=== PATIENT | female | born 1945 | race Caucasian/White ===

== ENCOUNTER 2020-12-20 17:03 | Inpatient (IN) | payer MEDICARE ==
[~2020-12-20] VITALS: Ht 167.6 cm; Wt 46.7 kg
[~2020-12-20 17:03] MED LIST: ASCO-352 PO; CHOL100062 PO; MULT-1200 PO
--- NOTE | 2020-12-20 17:10 | NUR ---
Patient bibra from care facility, staff heard a sound and upon checking patient found on the floor. On room air, breathing evenly and unlabored. Connected to the monitor and pulse ox. kept comfortable, will continue to monitor accordingly.
[2020-12-20] MEDS ORDERED: LACT-58 PO (18:21)
[2020-12-20] MEDS ORDERED: ESOM20CA PO (18:21)
[2020-12-20] MEDS ORDERED: MAGN400O6 PO (18:21)
[2020-12-20] MEDS ORDERED: ATOR10TA PO (18:21)
[2020-12-20] MEDS ORDERED: CHOL100062 PO (18:21)
[2020-12-20] MEDS ORDERED: DOCU-141 PO (18:21)
[2020-12-20] MEDS ORDERED: LOPE2TAB25 PO (18:21)
[2020-12-20] MEDS ORDERED: MAG30ORA PO (18:21)
[2020-12-20] MEDS ORDERED: MULT-16 PO (18:21)
[2020-12-20 18:27] LABS: BASOPHILS % (AUTO) 0.4 % (0.0-2.0); EOSINOPHILS % (AUTO) 1.8 % (0.0-6.0); HEMATOCRIT 33 % (33-45); HEMOGLOBIN 10.9 g/dL (11.5-14.8); LYMPHOCYTES # (AUTO) 1.3 /CMM (0.8-4.8); LYMPHOCYTES % (AUTO) 22.6 % (20.0-44.0); MEAN CORPUSCULAR HGB CONC 33 g/dl (31.0-36.0); MEAN CORPUSCULAR VOLUME 98 fL (82-100); MONOCYTES # (AUTO) 0.5 /CMM (0.1-1.30); MONOCYTES % (AUTO) 8.7 % (2.0-12.0); NEUTROPHILS # (AUTO) 3.7 /CMM (1.8-8.9); NEUTROPHILS % (AUTO) 66.5 % (43.0-81.0); PLATELET COUNT (AUTO) 237 /CMM (150-450); RED BLOOD CELL COUNT(AUTO) 3.35 MIL/uL (4.0-5.2); WHITE BLOOD COUNT (AUTO) 5.6 K/uL (4.3-11.0)
[2020-12-20 19:05] LABS: POTASSIUM 4.1 mmol/L (3.5-5.1); SODIUM SERUM 145 mmol/L (136-145)
[2020-12-20 19:06] LABS: CALCIUM, SERUM 8.1 mg/dL (8.5-10.1); CARBON DIOXIDE 28 mmol/L (21-32); CHLORIDE 111 mmol/L (98-107); GLUCOSE 106 mg/dL (74-106); UREA NITROGEN, BLOOD 31 mg/dL (7-18)
[2020-12-20 19:23] LABS: BILIRUBIN,URINE NEGATIVE (NEGATIVE); COLOR,URINE YELLOW (YELLOW); LEUKOCYTE ESTERASE ,URINE NEGATIVE (NEGATIVE); NITRITE, URINE NEGATIVE (NEGATIVE); PROTEIN,URINE NEGATIVE (NEGATIVE); UGLUCOSE NEGATIVE (NEGATIVE); UROBILINOGEN,URINE 0.2 EU/dL (0.2)
[2020-12-20] MEDS ORDERED: IV NS 0.9% 1,000 ML IV ONE (19:30)
--- NOTE | 2020-12-20 21:14 | NUR ---
BED ASSIGNED= 102
--- NOTE | 2020-12-20 21:42 | NUR ---
report given to Tere BARON for rao
--- NOTE | 2020-12-20 22:20 | NUR ---
ADMIT NOTE RECEIVED PATIENT FROM ER, TRANSFERRED TO ROOM 102 VIA GURNEY. PATIENT IS AWAKE. ALERT AND ORIENTED TO NAME ONLY. ON ROOM AIR, O2 SAT 100%. NO S/S OF DISTRESS. TELE MONITOR ON, HR 50'S. WITH IV ACCESS ON RIGHT FOREARM #18 PATENT AND INTACT. DENIES ANY PAIN AT THIS TIME. SKIN ASSESSMENT DONE, NOTED WITH MID BACK REDNESS. NOTED WITH BILATERAL LOWER EXTREMITY PITTING EDEMA +1. ANGELES CATH PATENT AND INTACT, DRAINING YELLOW URINE TO GRAVITY. BED LOCKED AND IN LOWEST POSITION WITH SIDE RAILS UPX2. BED ALARM ON. CALL LIGHT WITHIN REACH. ALL NEEDS ANTICIPATED.
[2020-12-20] MEDS ORDERED: ACETAMINOPHEN 325 MG TABLET PO PRN (22:30)
[2020-12-20] MEDS ORDERED: Z GUARD REMEDY 2 OZ OINT TP PRN (22:30)
[2020-12-20] MEDS ORDERED: ONDANSETRON HCL/PF 4 MG/2 ML VIAL IVP PRN (22:30)
--- NOTE | 2020-12-20 22:45 | NUR ---
wheeled patient via gurney accompanied by RN and emt in no distress. RN assigned at bedside to assume care.
[2020-12-20 22:50] VITALS: BP 132/55
[2020-12-21] VITALS (8 sets, daily range): BP systolic 89–129; BP diastolic 49–79
[2020-12-21] MEDS: IV NS 0.9% 1,000 ML IV PRN ×2 (01:01→16:00)
--- NOTE | 2020-12-21 06:45 | NUR ---
RN NOTE PATIENT ALERT AND ORIENTED X1. ON ROOM AIR, O2 SAT 100%. RESPIRATIONS EVEN AND UNLABORED. TELE MONITOR ON, HR 50'S. WITH IV ACCESS ON RIGHT FOREARM #18 PATENT AND INTACT RUNNING IV NS @75 ML/HR. DENIES ANY PAIN AT THIS TIME. ANGELES CATH PATENT AND INTACT, DRAINING YELLOW URINE TO GRAVITY OUTPUT OF 400CC. ORTHOSTATIC HYPOTENSION BP TAKEN. LYING 128/60, SITTING 129/59, AND PATIENT UNABLE TO STAND AT THIS TIME. BED LOCKED AND IN LOWEST POSITION WITH SIDE RAILS UPX2. BED ALARM ON. CALL LIGHT WITHIN REACH. WILL ENDORSE TO AM SHIFT.
--- NOTE | 2020-12-21 07:00 | NUR ---
RN NOTES RECEIVED PT ON BED, A/Ox1, ON RA , O2 SAT WNL SB-SR ON TELE, R FA IV SITE CLEAN, DRY, INTACT, NS AT 75CC/HR RUNNING, SR UP X3, CALL LIGHT WITHIN EASY REACH, BED LOCKED AND IN LOWEST POSITION, CONTINUE TO MONITOR .
[2020-12-21] MEDS: ENSURE ENLIVE CHOC 237 ML CAN PO SCH ×3 (09:00→17:04)
[2020-12-21] MEDS: Magnesium 1GM/D5W 100ML PREMIX 100 ML IV SCH ×3 (09:00→10:00)
[2020-12-21] MEDS: ATORVASTATIN 10 MG TABLET PO SCH (09:54)
[2020-12-21] MEDS: ASCORBIC ACID 500 MG TABLET PO SCH (09:54)
[2020-12-21] MEDS: CHOLECALCIFEROL 1,000 UNIT TABLET (VIT D3) PO SCH (09:54)
[2020-12-21] MEDS: DOCUSATE SODIUM 100 MG CAPSULE PO SCH (09:54)
[2020-12-21] MEDS: MULTIVITAMINS,THERAGRAN 1 UDTAB TABLET PO SCH (09:54)
[2020-12-21 11:29] LABS: BASOPHILS % (AUTO) 0.5 % (0.0-2.0); EOSINOPHILS % (AUTO) 1.4 % (0.0-6.0); HEMATOCRIT 32 % (33-45); HEMOGLOBIN 10.8 g/dL (11.5-14.8); LYMPHOCYTES # (AUTO) 1.2 /CMM (0.8-4.8); LYMPHOCYTES % (AUTO) 22.3 % (20.0-44.0); MEAN CORPUSCULAR HGB CONC 33 g/dl (31.0-36.0); MEAN CORPUSCULAR VOLUME 98 fL (82-100); MONOCYTES # (AUTO) 0.4 /CMM (0.1-1.30); MONOCYTES % (AUTO) 7.5 % (2.0-12.0); NEUTROPHILS # (AUTO) 3.6 /CMM (1.8-8.9); NEUTROPHILS % (AUTO) 68.3 % (43.0-81.0); PLATELET COUNT (AUTO) 222 /CMM (150-450); RED BLOOD CELL COUNT(AUTO) 3.32 MIL/uL (4.0-5.2); WHITE BLOOD COUNT (AUTO) 5.3 K/uL (4.3-11.0)
[2020-12-21 11:40] LABS: CALCIUM, SERUM 8.2 mg/dL (8.5-10.1); CREATININE 0.6 mg/dL (0.6-1.3); MAGNESIUM 2.1 mg/dL (1.8-2.4); PHOSPHORUS 3.4 mg/dL (2.5-4.9); POTASSIUM 4.2 mmol/L (3.5-5.1)
--- NOTE | 2020-12-21 15:25 | NUR ---
RN NOTES REPORT GIVEN TO JESSE FOR CONTINUITY OF CARE .
--- NOTE | 2020-12-21 15:38 | NUR ---
RN NOTES PATIENT SHOWS S/S OF CONFUSION, IV PATENT INTACT, NO SOB, NO LABORED BREATHING NO DISTRESS NOTE, MADE COMFORTABLE AND EXPLAINED REASONS FOR BEING HERE, COOPERATIVE AT THIS TIME, CALL LIGHT IN REACH
--- NOTE | 2020-12-21 18:25 | NUR ---
RN NOTES PATIENT TRANSFERRED TO TELE MED FOR EPISODES OF SYNCOPE , A/OX 1, O2 SAT ROOM AIR 98% SB-SR ON TELE, RIGHT FORE ARM IV SITE CLEAN, DRY, INTACT, NO SOB , NO DISTRESS NOTED AND NO C/O PAIN, NS AT 75CC/HR RUNNING, CALL LIGHT WITHIN REACH, SAFETY PRECAUTIONS IN PLACE BED LOCKED AND IN LOWEST POSITION, CONTINUE TO MONITOR .
--- NOTE | 2020-12-21 19:20 | NUR ---
RN NOTE RECEIVED PT IN BED ALERT, INCOHERENT. REORIENTED TO TIME AND PLACE. NO DISTRESS NOTED. PT ON TELE MONITOR SHOWS SR WITH HR OF 61. PT WITH RFA IV LINE, NS RUNNING AT 75 ML/HR. WILL CONTINUE TO MONITOR. ALL SAFETY MEASURES IMPLEMENTED PER PROTOCOL. CALL LIGHT WITHIN REACH BED LOCKED IN LOWEST POSITION. SIDE RAILS UP X 2.
[2020-12-22] VITALS: BP 90/59
[2020-12-22 04:00] VITALS: BP 123/66
[2020-12-22] MEDS: IV NS 0.9% 1,000 ML IV PRN ×2 (04:47→18:38)
--- NOTE | 2020-12-22 05:34 | NUR ---
rt and charge nurse at bedside. pt refusing noncompliant and refusing ekg at this time. rn notified
[2020-12-22 05:57] LABS: BASOPHILS % (AUTO) 0.5 % (0.0-2.0); EOSINOPHILS % (AUTO) 1.3 % (0.0-6.0); HEMATOCRIT 31 % (33-45); HEMOGLOBIN 10.4 g/dL (11.5-14.8); LYMPHOCYTES # (AUTO) 1.2 /CMM (0.8-4.8); LYMPHOCYTES % (AUTO) 19.1 % (20.0-44.0); MEAN CORPUSCULAR HGB CONC 34 g/dl (31.0-36.0); MEAN CORPUSCULAR VOLUME 97 fL (82-100); MONOCYTES # (AUTO) 0.5 /CMM (0.1-1.30); MONOCYTES % (AUTO) 7.6 % (2.0-12.0); NEUTROPHILS # (AUTO) 4.4 /CMM (1.8-8.9); NEUTROPHILS % (AUTO) 71.5 % (43.0-81.0); PLATELET COUNT (AUTO) 212 /CMM (150-450); RED BLOOD CELL COUNT(AUTO) 3.21 MIL/uL (4.0-5.2); WHITE BLOOD COUNT (AUTO) 6.1 K/uL (4.3-11.0)
[2020-12-22 06:19] LABS: ALANINE AMINOTRANSFERASE 22 U/L (12-78); ALBUMIN 2.5 g/dL (3.4-5.0); ALKALINE PHOSPHATASE 113 U/L (46-116); ASPARTATE AMINOTRANSFERASE 20 U/L (15-37); BILIRUBIN,TOTAL 0.2 mg/dL (0.2-1.0); CARBON DIOXIDE 27 mmol/L (21-32); CHLORIDE 110 mmol/L (98-107); CREATININE 0.6 mg/dL (0.6-1.3); GLUCOSE 87 mg/dL (74-106); PHOSPHORUS 3.8 mg/dL (2.5-4.9); POTASSIUM 4.1 mmol/L (3.5-5.1); SODIUM SERUM 144 mmol/L (136-145); TOTAL PROTEIN, SERUM 5.3 g/dL (6.4-8.2); UREA NITROGEN, BLOOD 19 mg/dL (7-18)
--- NOTE | 2020-12-22 06:24 | NUR ---
RN CLOSING NOTES PT SLEEPING, AROUSES EASILY. NO SIGNS OF DISTRESS NOTED, REMAIN AFEBRILE. PT REFUSED EKG EARLIER. SINUS KAYLYN ON TELE MONITOR. NO SIGNIFICANT CHANGES. ANGELES CATH IN PLACE, DRAINING CLEAR URINE OUTPUT. CONTINUE ON IVF OF NS, NO SIGNS OF INFILTRATION NOTED. ALL SAFETY MEASURES MAINTAINED. WILL ENDORSE TO NEXT SHIFT NURSE FOR ROLANDO.
--- NOTE | 2020-12-22 07:50 | NUR ---
RN OPENING NOTE PATIENT IS CURRENTLY IN BED WITH HOB AT SEMI FOWLERS POSITION. PATIENT IS ON ROOM AIR WITH NO SIGNS OF LABORED BREATHING. PATIENT IS AOX1. RFA#18 IS PATENT AND INTACT. BED IS LOCKED IN THE LOWEST POSITION, 3 GUARD RAILS RAISED, CALL [place] WITHIN REACH, AND ALL HOSPITAL SAFETY PRECAUTIONS ARE BEING FOLLOWED. WILL CONTINUE TO MONITOR THROUGHOUT SHIFT.
[2020-12-22 08:00] VITALS: BP 120/58
[2020-12-22] MEDS ORDERED: ENSURE ENLIVE 237 ML LIQUID (VANILLA) PO SCH (08:00)
[2020-12-22] MEDS: ENSURE ENLIVE CHOC 237 ML CAN PO SCH ×3 (08:00→17:20)
[2020-12-22] MEDS: CHOLECALCIFEROL 1,000 UNIT TABLET (VIT D3) PO SCH (08:34)
[2020-12-22] MEDS: MULTIVITAMINS,THERAGRAN 1 UDTAB TABLET PO SCH (08:34)
[2020-12-22] MEDS: ATORVASTATIN 10 MG TABLET PO SCH (08:34)
[2020-12-22] MEDS: ASCORBIC ACID 500 MG TABLET PO SCH (08:34)
[2020-12-22] MEDS: DOCUSATE SODIUM 100 MG CAPSULE PO SCH (08:34)
[2020-12-22] MEDS: PANTOPRAZOLE 40 MG TABLET.DR PO SCH (08:36)
[2020-12-22 12:00] VITALS: BP 100/57
[2020-12-22 16:00] VITALS: BP 114/79
--- NOTE | 2020-12-22 18:46 | NUR ---
RN CLOSING NOTE PATIENT IS CURRENTLY IN BED WITH HOB AT SEMI FOWLERS POSITION. PATIENT IS ON ROOM AIR WITH NO SIGNS OF LABORED BREATHING. PATIENT IS AOX1. RFA#18 IS PATENT AND INTACT. BED IS LOCKED IN THE LOWEST POSITION, 3 GUARD RAILS RAISED, CALL [place] WITHIN REACH, AND ALL HOSPITAL SAFETY PRECAUTIONS ARE BEING FOLLOWED. ALL DUE MEDS GIVEN AND PATIENT REMAINED STABLE THROUGHOUT SHIFT. WILL ENDORSE TO COST ACCOUNTANT RN FOR ROLANDO.
[2020-12-22 20:00] VITALS: BP 106/56
--- NOTE | 2020-12-22 20:00 | NUR ---
RN NOTE RECEIVED PT IN THE BED AWAKE, PT IS CONFUSED, ON RA SATING 98%, TELE MONITOR SHOWING SB IM 50s, SAFETY MEASURES IN PLACE.
[2020-12-23] VITALS: BP 131/57
[2020-12-23 04:00] VITALS: BP 138/65
[2020-12-23 06:47] LABS: CALCIUM, SERUM 8.3 mg/dL (8.5-10.1); CREATININE 0.7 mg/dL (0.6-1.3); POTASSIUM 3.9 mmol/L (3.5-5.1)
--- NOTE | 2020-12-23 07:08 | NUR ---
RN NOTE REPORT GIVEN TO ONCOMING SHIFT FOR ROLANDO.
--- NOTE | 2020-12-23 07:45 | NUR ---
RN OPENING NOTE PATIENT IS IN BED WITH HOB AT SEMI FOWLERS. PATIENT IS CONFUSED. PATIENT IS ON ROOM AIR WITH NO SIGNS OF LABORED BREATHING. RFA IV ACCESS IS PATENT AND INTACT. ANGELES CATHETER IS IN PLACE. BED IS LOCKED IN THE LOWEST POSITION, 3 GUARD RAILS RAISED, CALL [place] WITHIN REACH, AND ALL HOSPITAL SAFETY PRECAUTIONS ARE BEING FOLLOWED. WILL CONTINUE TO MONITOR THROUGHOUT SHIFT.
[2020-12-23 08:00] VITALS: BP 125/73
[2020-12-23] MEDS: ENSURE ENLIVE CHOC 237 ML CAN PO SCH (08:00)
[2020-12-23 08:17] LABS: BASOPHILS % (AUTO) 0.2 % (0.0-2.0); EOSINOPHILS % (AUTO) 0.5 % (0.0-6.0); HEMATOCRIT 34 % (33-45); HEMOGLOBIN 11.3 g/dL (11.5-14.8); LYMPHOCYTES # (AUTO) 0.8 /CMM (0.8-4.8); LYMPHOCYTES % (AUTO) 9.1 % (20.0-44.0); MEAN CORPUSCULAR HGB CONC 34 g/dl (31.0-36.0); MEAN CORPUSCULAR VOLUME 97 fL (82-100); MONOCYTES # (AUTO) 0.6 /CMM (0.1-1.30); MONOCYTES % (AUTO) 7.6 % (2.0-12.0); NEUTROPHILS % (AUTO) 82.6 % (43.0-81.0); PLATELET COUNT (AUTO) 216 /CMM (150-450); RED BLOOD CELL COUNT(AUTO) 3.48 MIL/uL (4.0-5.2); WHITE BLOOD COUNT (AUTO) 8.5 K/uL (4.3-11.0)
[2020-12-23] MEDS: PANTOPRAZOLE 40 MG TABLET.DR PO SCH (08:43)
[2020-12-23] MEDS: DOCUSATE SODIUM 100 MG CAPSULE PO SCH (08:43)
[2020-12-23] MEDS: ATORVASTATIN 10 MG TABLET PO SCH (08:43)
[2020-12-23] MEDS: CHOLECALCIFEROL 1,000 UNIT TABLET (VIT D3) PO SCH (08:44)
[2020-12-23] MEDS: MULTIVITAMINS,THERAGRAN 1 UDTAB TABLET PO SCH (08:44)
[2020-12-23] MEDS: ASCORBIC ACID 500 MG TABLET PO SCH (08:44)
--- NOTE | 2020-12-23 10:40 | NUR ---
RN NOTE REPORT GIVEN TO ANAYA AT [facility]. ATTEMPTED TO OBTAIN PNEUMO VACCINE STATUS BUT THEY DID NOT HAVE ACCESS TO INFORMATION AT THE TIME I CALLED. CALLED PATIENT'S BROTHER BERNARD AND HE STATED HE WAS UNSURE ON THE PNEUMO VACCINE STATUS FOR PATIENT AND THAT HE WOULD LIKE IT NOT TO BE ADMINISTERED SO HE CAN FOLLOW UP WITH HER PCP AND THEN TAKE THE NECESSARY ACTION. Addendum: 12/23/20 at 1126 by RALPH KERR RN REPORT GIVEN TO ANAYA AT [facility]. NOT [facility]
--- NOTE | 2020-12-23 11:15 | NUR ---
RN NOTE REPORT GIVEN TO EMT FOR DC AND ROLANDO. PATIENT IN STABLE CONDITION.
== END 2020-12-23 12:04 | DRG 641 ==
LOC: ER 17:08 → MEDSG1 21:14 → TELE1 21:20 → MEDSG1 12-23 08:21
PROVIDERS: ADMIT Nurse Practitioner Acute Care; ATTEND Family Medicine
DX: E86.9 Volume depletion, unspecified (principal); N17.9 Acute kidney failure, unspecified; E44.0 Moderate protein-calorie malnutrition; E86.0 Dehydration; R00.1 Bradycardia, unspecified; F03.90 Unspecified dementia, unspecified severity, without behavioral disturbance, psychotic disturbance, mood disturbance, and anxiety; D64.9 Anemia, unspecified; F41.9 Anxiety disorder, unspecified; I48.0 Paroxysmal atrial fibrillation; Z20.822 Contact with and (suspected) exposure to COVID-19; Z79.899 Other long term (current) drug therapy; E83.42 Hypomagnesemia
CPT/HCPCS: 36415; 70450-TC; 71045-TC; 72125-TC; 80048-TC; 80053-TC; 80061-TC; 83735-TC; 84100-TC; 84484-TC; 85025-TC; 87081-TC; 97112-TC; 97530-TC; G0378; J3475; J7030; U0003

== ENCOUNTER 2022-07-20 13:53 | Inpatient (IN) | payer MEDICARE ==
[~2022-07-20] VITALS: Ht 162.6 cm; Wt 65.8 kg
[~2022-07-20 13:53] MED LIST changes: +ATOR10TA PO; +DOCU-141 PO; +ESOM20CA PO; +LACT-58 PO; +LOPE2TAB25 PO; +MAG30ORA PO; +MAGN400O6 PO; -MULT-1200 PO; +MULT-16 PO
[2022-07-20] MEDS ORDERED: QUET50TA PO (14:27)
[2022-07-20] MEDS ORDERED: MIRT-121 PO (14:27)
[2022-07-20] MEDS ORDERED: IV NS 0.9% 1,000 ML IV ONE (14:30)
[2022-07-20 14:40] LABS: BASOPHILS % (AUTO) 0.2 % (0.0-2.0); EOSINOPHILS % (AUTO) 0.3 % (0.0-6.0); HEMATOCRIT 40 % (33-45); HEMOGLOBIN 12.9 g/dL (11.5-14.8); LYMPHOCYTES # (AUTO) 0.5 K/uL (0.8-4.8); MEAN CORPUSCULAR HGB CONC 32 g/dl (31.0-36.0); MEAN CORPUSCULAR VOLUME 95 fL (82-100); MONOCYTES # (AUTO) 0.6 K/uL (0.1-1.30); MONOCYTES % (AUTO) 4.5 % (2.0-12.0); NEUTROPHILS # (AUTO) 11.6 K/uL (1.8-8.9); PLATELET COUNT (AUTO) 144 K/uL (150-450); WHITE BLOOD COUNT (AUTO) 12.8 K/uL (4.3-11.0)
[2022-07-20 14:58] LABS: CALCIUM, SERUM 8.9 mg/dL (8.5-10.1); CARBON DIOXIDE 26 mmol/L (21-32); CHLORIDE 112 mmol/L (98-107); CREATININE 1.2 mg/dL (0.6-1.3); GLUCOSE 113 mg/dL (74-106); POTASSIUM 3.5 mmol/L (3.5-5.1); SODIUM SERUM 149 mmol/L (136-145); UREA NITROGEN, BLOOD 23 mg/dL (7-18)
--- NOTE | 2022-07-20 15:00 | NUR ---
No obvious distress. No acute changes
[2022-07-20 15:02] LABS: ALANINE AMINOTRANSFERASE 44 U/L (12-78); ALBUMIN 3.3 g/dL (3.4-5.0); ALKALINE PHOSPHATASE 240 U/L (46-116); ASPARTATE AMINOTRANSFERASE 39 U/L (15-37); BILIRUBIN,DIRECT 0.3 mg/dL (0.0-0.2); BILIRUBIN,TOTAL 0.6 mg/dL (0.2-1.0); TOTAL PROTEIN, SERUM 6.6 g/dL (6.4-8.2)
--- NOTE | 2022-07-20 16:30 | NUR ---
Status quo NO acute changes awaiting bed assignment
--- NOTE | 2022-07-20 16:45 | NUR ---
BED 317-2
[2022-07-20 17:00] LABS: BILIRUBIN,URINE NEGATIVE (NEGATIVE); COLOR,URINE YELLOW (YELLOW); LEUKOCYTE ESTERASE ,URINE NEGATIVE (NEGATIVE); NITRITE, URINE NEGATIVE (NEGATIVE); PH,URINE 5.5 (5.0-8.0); PROTEIN,URINE TRACE mg/dl (NEGATIVE); UGLUCOSE NEGATIVE (NEGATIVE); UROBILINOGEN,URINE 0.2 EU/dL (0.2)
--- NOTE | 2022-07-20 17:02 | NUR ---
REPORT GIVEN TO COLE.
[2022-07-20 17:43] LABS: BACTERIA,URINE 1+ /HPF (None Seen); URINE AMORPHOUS URATE Moderate /HPF (None Seen)
[2022-07-20 18:15] VITALS: BP 119/60
[2022-07-20] MEDS ORDERED: MAGNESIUM HYDROXIDE 30 ML UDC PO PRN ×2 (19:00→19:30)
--- NOTE | 2022-07-20 19:01 | NUR ---
Patient was received on unit transferred from ER in stabe condition. Vital taken, tele monitor in place SR on monitor. Patient has no complaint at this time, has confusing unable to state name. Will report to oncoming shift
[2022-07-20] MEDS ORDERED: MAG HYDROX/AL HYDROX/SIMETH 30 ML UDC PO PRN (19:30)
[2022-07-20] MEDS ORDERED: ACETAMINOPHEN 325 MG TABLET PO PRN (19:30)
[2022-07-20] MEDS ORDERED: ONDANSETRON HCL/PF 4 MG/2 ML VIAL IVP PRN (19:30)
[2022-07-20] MEDS ORDERED: Z GUARD REMEDY 4 OZ OINT TP PRN (19:30)
[2022-07-20] MEDS ORDERED: IV NS 0.9% 1,000 ML IV PRN (19:30)
--- NOTE | 2022-07-20 19:45 | NUR ---
GROUNDS CREW SUPERVISOR OPENING NOTE RECEIVED PATIENT IN BED; AWAKE, ALERT AND ORIENTED X O. ON ROOM AIR; TOLERATING WELL. BREATHING EVEN AND NONLABORED. NOT IN ANY FORM OF RESPIRATORY DISTRESS. NO S/S OF ANY PAIN OR DISCOMFORT NOTED AT THIS TIME. ON TELEMETRY MONITORING WHICH READS SINUS RHYTHM HR-65 BPM. WITH IV ACCESS @ LEFT HAND 20G; PATENT, INTACT AND SALINE LOCKED. WITH ANGELES CATHETER IN PLACE DRAINING BY GRAVITY TO YELLOW COLORED URINE. NEEDS ANTICIPATED. SAFETY PRECAUTIONS IMPLEMENTED: CALL LIGHT AND TABLE WITHIN REACH, SIDE RAILS UP X 2, BED IN LOWEST LOCKED POSITION. WILL CONTINUE TO MONITOR.
[2022-07-20 20:00] VITALS: BP 119/55
[2022-07-20 20:30] VITALS: BP 119/55
[2022-07-20] MEDS: MIRTAZAPINE 15 MG TABLET PO SCH (21:55)
[2022-07-20] MEDS: QUETIAPINE FUMARATE 25 MG TABLET PO SCH (21:55)
[2022-07-20] MEDS ORDERED: ZOLPIDEM TARTRATE 5 MG TABLET PO PRN (22:00)
[2022-07-21] VITALS: BP 98/73
[2022-07-21 04:00] VITALS: BP 124/79
[2022-07-21 06:58] LABS: BASOPHILS % (AUTO) 0.2 % (0.0-2.0); EOSINOPHILS % (AUTO) 1.2 % (0.0-6.0); HEMATOCRIT 34 % (33-45); HEMOGLOBIN 11.4 g/dL (11.5-14.8); LYMPHOCYTES # (AUTO) 0.8 K/uL (0.8-4.8); LYMPHOCYTES % (AUTO) 9.4 % (20.0-44.0); MEAN CORPUSCULAR HGB CONC 34 g/dl (31.0-36.0); MEAN CORPUSCULAR VOLUME 95 fL (82-100); MONOCYTES # (AUTO) 0.7 K/uL (0.1-1.30); MONOCYTES % (AUTO) 8.4 % (2.0-12.0); NEUTROPHILS # (AUTO) 6.8 K/uL (1.8-8.9); NEUTROPHILS % (AUTO) 80.8 % (43.0-81.0); PLATELET COUNT (AUTO) 109 K/uL (150-450); RED BLOOD CELL COUNT(AUTO) 3.55 MIL/uL (4.0-5.2); WHITE BLOOD COUNT (AUTO) 8.4 K/uL (4.3-11.0)
[2022-07-21 07:00] VITALS: BP 126/75
--- NOTE | 2022-07-21 07:05 | NUR ---
ACCOUNT ENGINEER CLOSING NOTE PATIENT IN BED; AWAKE, A/O X O. STABLE ON ROOM AIR. BREATHING EQUAL AND UNLABORED. IN NO ACUTE DISTRESS. NO S/S OF ANY PAIN OR DISCOMFORT NOTED AT THIS TIME. ON TELEMETRY MONITORING WHICH READS SINUS RHYTHM HR-68 BPM. WITH IV ACCESS @ LEFT HAND 20G; PATENT, INTACT AND SALINE LOCKED. WITH ANGELES CATHETER IN PLACE DRAINING BY GRAVITY TO YELLOW COLORED URINE. ALL NEEDS ATTENDED. SAFETY PREACAUTIONS MAINTAINED: CALL LIGHT AND TABLE WITHIN REACH, SIDE RAILS UP X 2, BED IN LOWEST LOCKED POSITION. ENDORSED TO MORNING SHIFT FOR ROLANDO.
--- NOTE | 2022-07-21 07:18 | NUR ---
MS RN RECEIVED PATIENT ON BED, AWAKE, ORIENTED X 0, NOT IN ANY FORM OF DISTRESS, RESPIRATIONS EVEN AND UNLABORED,NO SOB NOTED, LUNGS ARE DIMINISHED,ABDOMEN SOFT,POSITIVE BOWEL SOUNDS,DENIES PAIN AT THIS TIME,WILL MONITOR PATIENT'S CONDITION.
[2022-07-21 07:22] LABS: CALCIUM, SERUM 8.4 mg/dL (8.5-10.1); CREATININE 0.8 mg/dL (0.6-1.3); MAGNESIUM 1.8 mg/dL (1.8-2.4); PHOSPHORUS 3.6 mg/dL (2.5-4.9); POTASSIUM 3.6 mmol/L (3.5-5.1)
[2022-07-21 07:34] LABS: THYROID STIMULATING HORMONE 0.946 uIU/mL (0.358-3.74)
[2022-07-21] MEDS ORDERED: PANTOPRAZOLE 40 MG VIAL IV SCH (09:00)
--- NOTE | 2022-07-21 09:11 | NUR ---
MS RN BREAKFAST SERVED,DUE MEDS GIVEN, TOLERATED WELL.ALL NEEDS ATTENDED.
[2022-07-21] MEDS: PANTOPRAZOLE 40 MG TABLET.DR PO SCH (09:30)
[2022-07-21] MEDS: ATORVASTATIN 10 MG TABLET PO SCH (09:30)
[2022-07-21] MEDS: ASCORBIC ACID 500 MG TABLET PO SCH (09:30)
[2022-07-21] MEDS: DOCUSATE SODIUM 100 MG CAPSULE PO SCH (09:31)
--- NOTE | 2022-07-21 09:50 | NUR ---
MS RN WAS SEEN BY, BARELY TOLERATED, NO DISTRESS NOTED.
[2022-07-21 12:00] VITALS: BP 109/47
[2022-07-21] MEDS: IV D5W 1,000 ML IV PRN (17:09)
[2022-07-21 20:00] VITALS: BP 121/60
--- NOTE | 2022-07-21 20:00 | NUR ---
HEAT TREATER APPRENTICE OPENING NOTE PATIENT IN BED; AWAKE, A/O X O. STABLE ON ROOM AIR. BREATHING EQUAL AND UNLABORED. IN NO ACUTE DISTRESS. NO S/S OF ANY PAIN OR DISCOMFORT NOTED AT THIS TIME. ON TELEMETRY MONITORING WHICH READS SINUS RHYTHM HR-68 BPM. WITH ANGELES CATHETER IN PLACE DRAINING BY GRAVITY TO YELLOW COLORED URINE. ALL NEEDS ATTENDED. SAFETY PRECAUTIONS MAINTAINED: CALL LIGHT AND TABLE WITHIN REACH, SIDE RAILS UP X 2, BED IN LOWEST LOCKED POSITION.
[2022-07-21] MEDS: QUETIAPINE FUMARATE 25 MG TABLET PO SCH (21:22)
[2022-07-21] MEDS: MIRTAZAPINE 15 MG TABLET PO SCH (21:22)
[2022-07-21 23:25] VITALS: BP 115/62
--- NOTE | 2022-07-22 06:45 | NUR ---
FILLING CARRIER CLOSING NOTE PATIENT IN BED; AWAKE, A/O X O. STABLE ON ROOM AIR. BREATHING EQUAL AND UNLABORED. IN NO ACUTE DISTRESS. NO S/S OF ANY PAIN OR DISCOMFORT NOTED AT THIS TIME. ON TELEMETRY MONITORING WHICH READS SINUS RHYTHM. WITH ANGELES CATHETER IN PLACE DRAINING BY GRAVITY TO YELLOW COLORED URINE. ALL NEEDS ATTENDED. SAFETY PRECAUTIONS MAINTAINED: CALL LIGHT AND TABLE WITHIN REACH, SIDE RAILS UP X 2, BED IN LOWEST LOCKED POSITION. WILL ENDORSE CARE TO DAY SHIFT NURSE.
--- NOTE | 2022-07-22 07:25 | NUR ---
ms rn received on bed, confuse,not in any form of distress, respirations even and unlabored,no sob noted, occasional coughing noted, no s/s of pain noted, noted to have left cheek bruise and bilateral foot bruise,both off loaded w/ pillows,repositioned w/ comfort,all needs attended.
[2022-07-22 08:00] VITALS: BP 119/64
[2022-07-22] MEDS: DOCUSATE SODIUM 100 MG CAPSULE PO SCH (08:10)
[2022-07-22] MEDS: ASCORBIC ACID 500 MG TABLET PO SCH (08:10)
[2022-07-22] MEDS: PANTOPRAZOLE 40 MG TABLET.DR PO SCH (08:10)
[2022-07-22] MEDS: ATORVASTATIN 10 MG TABLET PO SCH (08:10)
--- NOTE | 2022-07-22 09:00 | NUR ---
ms amy due meds given, breakfast served,tolerated well.will monitor patient.
--- NOTE | 2022-07-22 12:00 | NUR ---
ms rn called lab for blood draw note done.
[2022-07-22] MEDS: IPRATROPIUM NEB FS 0.5 MG/2.5 ML AMPUL.NEB NEB SCH ×3 (13:19→23:49)
[2022-07-22] MEDS: ALBUTEROL FS 2.5 MG/3 ML VIAL.NEB NEB SCH ×3 (13:20→23:49)
[2022-07-22 13:50] LABS: CALCIUM, SERUM 7.8 mg/dL (8.5-10.1); CREATININE 0.9 mg/dL (0.6-1.3); MAGNESIUM 1.3 mg/dL (1.8-2.4); PHOSPHORUS 3.3 mg/dL (2.5-4.9); POTASSIUM 3.2 mmol/L (3.5-5.1)
[2022-07-22 14:27] LABS: BASOPHILS % (AUTO) 0.1 % (0.0-2.0); HEMATOCRIT 34 % (33-45); HEMOGLOBIN 11.4 g/dL (11.5-14.8); LYMPHOCYTES # (AUTO) 0.5 K/uL (0.8-4.8); LYMPHOCYTES % (AUTO) 5.2 % (20.0-44.0); MEAN CORPUSCULAR HGB CONC 34 g/dl (31.0-36.0); MEAN CORPUSCULAR VOLUME 93 fL (82-100); MONOCYTES # (AUTO) 0.7 K/uL (0.1-1.30); MONOCYTES % (AUTO) 7.2 % (2.0-12.0); NEUTROPHILS # (AUTO) 7.9 K/uL (1.8-8.9); NEUTROPHILS % (AUTO) 87.5 % (43.0-81.0); PLATELET COUNT (AUTO) 123 K/uL (150-450); RED BLOOD CELL COUNT(AUTO) 3.64 MIL/uL (4.0-5.2)
--- NOTE | 2022-07-22 15:30 | NUR ---
ms rn received lab result,called pharmacy for orders.
[2022-07-22 16:00] VITALS: BP 146/89
[2022-07-22] MEDS: Magnesium 1GM/D5W 100ML PREMIX 100 ML IV SCH ×4 (18:47→22:47)
[2022-07-22] MEDS ORDERED: POTASSIUM CHLORIDE 20 MEQ POWDER PACKET PO ONE (19:00)
--- NOTE | 2022-07-22 19:08 | NUR ---
ms rn on bed, no distress,will mnitor patient started mg iv, k replacement given,all needs attended.
--- NOTE | 2022-07-22 19:35 | NUR ---
RADIO DIVISION LIEUTENANT OPENING NOTE PATIENT IN BED; AWAKE, A/O X 1. STABLE ON ROOM AIR. BREATHING EQUAL AND UNLABORED. IN NO ACUTE DISTRESS. NO S/S OF ANY PAIN OR DISCOMFORT NOTED AT THIS TIME. ON TELEMETRY MONITORING WHICH READS SINUS RHYTHM. WITH ANGELES CATHETER IN PLACE DRAINING BY GRAVITY TO YELLOW COLORED URINE. ALL NEEDS ATTENDED. SAFETY PRECAUTIONS MAINTAINED: CALL LIGHT AND TABLE WITHIN REACH, SIDE RAILS UP X 2, BED IN LOWEST LOCKED POSITION.
[2022-07-22 20:00] VITALS: BP 81/46
[2022-07-22] MEDS: MIRTAZAPINE 15 MG TABLET PO SCH (21:11)
[2022-07-22] MEDS: QUETIAPINE FUMARATE 25 MG TABLET PO SCH (21:12)
[2022-07-22] MEDS ORDERED: IV NS 0.9% 500 ML IV ONE (22:30)
--- NOTE | 2022-07-22 22:30 | NUR ---
RN NOTE PTS SBP NOTED TO BE 64/45 HEAT PUMP INSTALLER CARLYN NOTIFIED WITH ORDER FOR 500CC NS BOLUS. BEING ADMINISTERED AT THIS TIME.
--- NOTE | 2022-07-23 | NUR ---
RN NOTE PT SBP IS NOW 100/50 NO DISTRESS NOTED NOT FEBRILE PT WAS PLACED ON 2L NS DUE TO O2 SATURATION FLUCTUATING FROM 81-90% ON ROOM AIR PT IS NOW SATURATING AT 96-98%
[2022-07-23] MEDS: ALBUTEROL FS 2.5 MG/3 ML VIAL.NEB NEB SCH ×6 (04:18→23:38)
[2022-07-23] MEDS: IPRATROPIUM NEB FS 0.5 MG/2.5 ML AMPUL.NEB NEB SCH ×6 (04:18→23:38)
[2022-07-23 06:02] LABS: EOSINOPHILS % (AUTO) 0.1 % (0.0-6.0); HEMATOCRIT 30 % (33-45); HEMOGLOBIN 10.3 g/dL (11.5-14.8); LYMPHOCYTES # (AUTO) 1.2 K/uL (0.8-4.8); LYMPHOCYTES % (AUTO) 12.2 % (20.0-44.0); MEAN CORPUSCULAR HGB CONC 34 g/dl (31.0-36.0); MEAN CORPUSCULAR VOLUME 94 fL (82-100); MONOCYTES # (AUTO) 0.6 K/uL (0.1-1.30); MONOCYTES % (AUTO) 6.4 % (2.0-12.0); NEUTROPHILS # (AUTO) 7.8 K/uL (1.8-8.9); NEUTROPHILS % (AUTO) 81.3 % (43.0-81.0); PLATELET COUNT (AUTO) 93 K/uL (150-450); RED BLOOD CELL COUNT(AUTO) 3.19 MIL/uL (4.0-5.2); WHITE BLOOD COUNT (AUTO) 9.6 K/uL (4.3-11.0)
[2022-07-23 06:07] LABS: CALCIUM, SERUM 7.6 mg/dL (8.5-10.1); CREATININE 1.2 mg/dL (0.6-1.3); MAGNESIUM 3.1 mg/dL (1.8-2.4); PHOSPHORUS 3.3 mg/dL (2.5-4.9); POTASSIUM 3.9 mmol/L (3.5-5.1)
--- NOTE | 2022-07-23 06:57 | NUR ---
NARRATIVE WRITER CLOSING NOTE PATIENT IN BED; AWAKE, A/O X 1. STABLE ON ROOM AIR. BREATHING EQUAL AND UNLABORED. IN NO ACUTE DISTRESS. NO S/S OF ANY PAIN OR DISCOMFORT NOTED AT THIS TIME. ON TELEMETRY MONITORING WHICH READS SINUS RHYTHM. WITH ANGELES CATHETER IN PLACE DRAINING BY GRAVITY TO YELLOW COLORED URINE. ALL NEEDS ATTENDED. SAFETY PRECAUTIONS MAINTAINED: CALL LIGHT AND TABLE WITHIN REACH, SIDE RAILS UP X 2, BED IN LOWEST LOCKED POSITION. WILL ENDORSE ROLANDO.
--- NOTE | 2022-07-23 07:40 | NUR ---
RN OPENING NOTE PATIENT AWAKE IN BED RESTING AT THE MOMENT A/O X 1. NO S/S OF PAIN NOTED AT THIS TIME. ON 2L OXYGEN VIA NC, NO DISTRESS OR SHORTNESS OF BREATH NOTED. IV ACCESS L HAND, INTACT, PATENT AND FLUSHING WELL. PATIENT HAVE A ANGELES CATHETER IN PLACE AND DRAINING WELL. PATIENT WITH EXTERNAL DEPARTMENT OPERATIONS MANAGER WITH CURRENT READING OF SR AND HR OF 70, NO CARDIAC DISTRESS NOTED. FALL AND SAFETY MEASURES IN PLACE, BED ALARM ON, BED IN LOW AND LOCK POSITION, CALL LIGHT AND TABLE WITHIN EASY REACH, SIDE RAILS UP X2. WILL CONTINUE TO MONITOR.
[2022-07-23 08:00] VITALS: BP 121/57
[2022-07-23] MEDS: ASCORBIC ACID 500 MG TABLET PO SCH (09:08)
[2022-07-23] MEDS: DOCUSATE SODIUM 100 MG CAPSULE PO SCH (09:08)
[2022-07-23] MEDS: PANTOPRAZOLE 40 MG TABLET.DR PO SCH (09:08)
[2022-07-23] MEDS: ATORVASTATIN 10 MG TABLET PO SCH (09:08)
[2022-07-23 11:14] LABS: BASOPHILS % (MANUAL) 0 % (0.0-2.0); EOSINOPHILS % (MANUAL) 0 % (0-4); LYMPHOCYTES % (MANUAL) 11 % (16-48); MONOCYTES % (MANUAL) 7 % (0-11.0); NEUTROPHILS % (MANUAL) 82 (42-76)
[2022-07-23] MEDS: IV D5W 1,000 ML IV PRN (12:56)
[2022-07-23 16:00] VITALS: BP 103/50
--- NOTE | 2022-07-23 18:54 | NUR ---
RN CLOSING NOTE PATIENT AWAKE IN BED RESTING AT THE MOMENT A/O X 1. NO S/S OF PAIN NOTED AT THIS TIME. ON 2L OXYGEN VIA NC, NO DISTRESS OR SHORTNESS OF BREATH NOTED. IV ACCESS L HAND, INTACT, PATENT AND FLUSHING WELL. PATIENT HAVE A ANGELES CATHETER IN PLACE AND DRAINING WELL, OUTPUT 600ML. PATIENT WITH EXTERNAL OVEN UNLOADER WITH CURRENT READING OF SR AND HR OF 78, NO CARDIAC DISTRESS NOTED. SCHEDULE MEDICATIONS ADMINISTERED. PATIENT WAS TURNED AND REPOSITIONED PER PROTOCOL. FALL AND SAFETY MEASURES IN PLACE, BED ALARM ON, BED IN LOW AND LOCK POSITION, CALL LIGHT AND TABLE WITHIN EASY REACH, SIDE RAILS UP X2. WILL ENDORSE TO HOSPICE ART THERAPIST.
--- NOTE | 2022-07-23 20:09 | NUR ---
AT RISK SPECIALIST OPENING NOTE PATIENT AWAKE IN BED RESTING AT THE MOMENT A/O X 1. NO S/S OF PAIN NOTED AT THIS TIME. ON 2L OXYGEN VIA NC, NO DISTRESS OR SHORTNESS OF BREATH NOTED. IV ACCESS L HAND INFUSING D5W AT 75ML/H, INTACT. ANGELES CATHETER IN PLACE AND DRAINING WELL, OUTPUT 600ML. PATIENT WITH EXTERNAL COMMERCIAL LOAN PROCESSOR WITH CURRENT READING OF SR AND HR OF 78, NO CARDIAC DISTRESS NOTED. PATIENT WAS TURNED AND REPOSITIONED PER PROTOCOL. SKIN ISSUES NOTED AT RIGHT KNEE REDNESS, BRUISING ON FACE AND FEET, RIGHT LATERAL WRIST REDNESS. FALL AND SAFETY MEASURES IN PLACE, BED ALARM ON, BED IN LOW AND LOCK POSITION, CALL LIGHT AND TABLE WITHIN EASY REACH, SIDE RAILS UP X2. WILL CONT TO MONITOR.
[2022-07-23 20:46] VITALS: BP 92/50
[2022-07-23] MEDS: MIRTAZAPINE 15 MG TABLET PO SCH (21:58)
[2022-07-23] MEDS: QUETIAPINE FUMARATE 25 MG TABLET PO SCH (21:58)
[2022-07-24 00:45] VITALS: BP_SYST 166; BP_SYST 90; BP_DIAS 43; BP_DIAS 76
[2022-07-24] MEDS: IPRATROPIUM NEB FS 0.5 MG/2.5 ML AMPUL.NEB NEB SCH ×6 (04:11→23:11)
[2022-07-24] MEDS: ALBUTEROL FS 2.5 MG/3 ML VIAL.NEB NEB SCH ×6 (04:11→23:11)
[2022-07-24 05:01] VITALS: BP 99/56
--- NOTE | 2022-07-24 06:41 | NUR ---
AUTO DESIGN CHECKER CLOSING NOTE PATIENT ASLEEP IN BED. A/O X 1. NO S/S OF PAIN NOTED AT THIS TIME. ON 2L OXYGEN VIA NC, NO DISTRESS OR SHORTNESS OF BREATH NOTED. IV ACCESS L HAND INFUSING D5W AT 75ML/H, INTACT. ANGELES CATHETER IN PLACE AND DRAINING WELL, OUTPUT 550ML. PATIENT WITH EXTERNAL SILVERING DEPARTMENT SUPERVISOR WITH CURRENT READING OF SR AND HR OF 73. NO CARDIAC DISTRESS NOTED. PATIENT WAS TURNED AND REPOSITIONED PER PROTOCOL. SKIN ISSUES NOTED AT RIGHT KNEE REDNESS, BRUISING ON FACE AND FEET, RIGHT LATERAL WRIST REDNESS. PATIENT REFUSED SKIN ASSESSMENT SHE WAS SLEEPING. ALL AND SAFETY MEASURES IN PLACE, BED ALARM ON, BED IN LOW AND LOCK POSITION, CALL LIGHT AND TABLE WITHIN EASY REACH, SIDE RAILS UP X2. WILL ENDORSE TO NEXT SHIFT RN FOR ROLANDO.
--- NOTE | 2022-07-24 07:41 | NUR ---
COFFIN MAKER OPENING NOTE Patient in bed, asleep. A/O x 1, confused, per facilities specialist report. On O2 at 2 LPM, no SOB or s/s of distress noted. IV access on Left hand #20 infusing D5W at 75 ml/hr. Vickers catheter in place draining to a yellow colored urine. On tele monitoring showing SR, HR 73. Safety precautions in place: bed in low, locked position; siderails up x 2; call light within reach. Will continue to monitor.
[2022-07-24 08:00] VITALS: BP 126/50
[2022-07-24] MEDS: PANTOPRAZOLE 40 MG TABLET.DR PO SCH (08:49)
[2022-07-24] MEDS: ATORVASTATIN 10 MG TABLET PO SCH (08:49)
[2022-07-24] MEDS: ASCORBIC ACID 500 MG TABLET PO SCH (08:50)
[2022-07-24] MEDS: DOCUSATE SODIUM 100 MG CAPSULE PO SCH (08:50)
[2022-07-24] MEDS: IV D5W 1,000 ML IV PRN (10:32)
[2022-07-24 12:00] VITALS: BP 98/62
--- NOTE | 2022-07-24 13:00 | NUR ---
RN NOTE Left arm swelling noted, IV fluid stopped and arm elevated. Asher Tolentino NP notified and ordered to DC IV fluids.
[2022-07-24 16:00] VITALS: BP 116/64
--- NOTE | 2022-07-24 19:24 | NUR ---
LABORER HIGH DENSITY PRESS CLOSING NOTE Patient in bed, resting. A/O x 1, confused, per cook night report. On O2 at 2 LPM, no SOB or s/s of distress noted. IV access on Left hand #20 infusing D5W at 75 ml/hr. Vickers catheter in place draining to a yellow colored urine with an output of 700cc. On tele monitoring showing SR, HR 70's with occasional PACs and PVCs. Patient kept clean and dry. Due meds given. Safety precautions in place: bed in low, locked position; siderails up x 2; call light within reach. Will endorse to cook night nurse for ROLANDO.
[2022-07-24 20:00] VITALS: BP 118/69
--- NOTE | 2022-07-24 21:08 | NUR ---
PRODUCT EXPERT OPENING NOTE PATIENT AWAKE IN BED RESTING AT THE MOMENT A/O X 1. NO S/S OF PAIN NOTED AT THIS TIME. ON 2L OXYGEN VIA NC, NO DISTRESS OR SHORTNESS OF BREATH NOTED. IV ACCESS L HAND, INFILTRATED AND SWELLING. NOTED ELEVATION DONE AND ICE PACK APPLICATION. ANGELES CATHETER IN PLACE AND DRAINING WELL. PATIENT WITH EXTERNAL RESOURCE DIRECTOR WITH CURRENT READING OF SR AND HR OF 78, NO CARDIAC DISTRESS NOTED. PATIENT WAS TURNED AND REPOSITIONED PER PROTOCOL. SKIN ISSUES NOTED AT RIGHT KNEE REDNESS, BRUISING ON FACE AND FEET, RIGHT LATERAL WRIST REDNESS. FALL AND SAFETY MEASURES IN PLACE, BED ALARM ON, BED IN LOW AND LOCK POSITION, CALL LIGHT AND TABLE WITHIN EASY REACH, SIDE RAILS UP X2. FOR DC TOMORROW AT 8AM. WILL CONT TO MONITOR.
[2022-07-24] MEDS: MIRTAZAPINE 15 MG TABLET PO SCH (21:51)
[2022-07-24] MEDS: QUETIAPINE FUMARATE 25 MG TABLET PO SCH (21:52)
[2022-07-25] VITALS: BP 126/60
[2022-07-25 04:00] VITALS: BP 116/72
[2022-07-25] MEDS: IPRATROPIUM NEB FS 0.5 MG/2.5 ML AMPUL.NEB NEB SCH (04:04)
[2022-07-25] MEDS: ALBUTEROL FS 2.5 MG/3 ML VIAL.NEB NEB SCH (04:04)
--- NOTE | 2022-07-25 06:33 | NUR ---
EXAMINATION GRADER OPENING NOTE PATIENT AWAKE IN BED RESTING AT THE MOMENT A/O X 1. NO S/S OF PAIN NOTED AT THIS TIME. ON 2L OXYGEN VIA NC, NO DISTRESS OR SHORTNESS OF BREATH NOTED. IV ACCESS L HAND. TO REMOVE ONCE DISCHARGE. ANGELES CATHETER IN PLACE AND DRAINING WELL. TO REMOVE ONCE DISCHARGE. PATIENT WITH EXTERNAL STEEL ROD BUSTER WITH CURRENT READING OF SR AND HR OF 77. NO CARDIAC DISTRESS NOTED. PATIENT WAS TURNED AND REPOSITIONED PER PROTOCOL. FALL AND SAFETY MEASURES IN PLACE, BED ALARM ON, BED IN LOW AND LOCK POSITION, CALL LIGHT AND TABLE WITHIN EASY REACH, SIDE RAILS UP X2. DC TODAY AT 8AM. WILL ENDORSE TO NEXT SHIFT RN FOR ROLANDO. Addendum: 07/25/22 at 0636 by ZAHEER CAMPBELL RN ERROR - PLEASE DISREGARD THIS NOTE
--- NOTE | 2022-07-25 06:36 | NUR ---
GUNSTOCK SPRAY UNIT ADJUSTER CLOSING NOTE PATIENT AWAKE IN BED RESTING AT THE MOMENT A/O X 1. NO S/S OF PAIN NOTED AT THIS TIME. ON 2L OXYGEN VIA NC, NO DISTRESS OR SHORTNESS OF BREATH NOTED. IV ACCESS L HAND. TO REMOVE ONCE DISCHARGE. ANGELES CATHETER IN PLACE AND DRAINING WELL. TO REMOVE ONCE DISCHARGE. PATIENT WITH EXTERNAL PATIENT SAFETY COORDINATOR WITH CURRENT READING OF SR AND HR OF 77. NO CARDIAC DISTRESS NOTED. PATIENT WAS TURNED AND REPOSITIONED PER PROTOCOL. FALL AND SAFETY MEASURES IN PLACE, BED ALARM ON, BED IN LOW AND LOCK POSITION, CALL LIGHT AND TABLE WITHIN EASY REACH, SIDE RAILS UP X2. DC TODAY AT 8AM. WILL ENDORSE TO NEXT SHIFT RN FOR ROLANDO.
--- NOTE | 2022-07-25 07:00 | NUR ---
TECHNICAL SALES REPRESENTATIVES OPENING NOTES: RECEIVED PT IN BED AWAKE, VERY CONFUSED. NO SOB OR CARDIAC DISTRESS NOTED, ON O2 INHALATION @2LPM VIA NC. PT IS VERY CONFUSED AND PT NEEDS FREQUENT REORIENTATION. IV ACCESS ON LEFT HAND GAUGE 20 PATENT,INTACT AND SL. FC DRAINING CLEAR YELLOW COLORED URINE, PATENT AND INTACT. SAFETY MEASURES MAINTAINED,SIDE RAILS UP X 2.CALL LIGHT AND BED CONTROL IN EASY REACH FOR HELP.
[2022-07-25] MEDS: PANTOPRAZOLE 40 MG TABLET.DR PO SCH (07:44)
[2022-07-25 08:00] VITALS: BP 134/66
--- NOTE | 2022-07-25 09:00 | NUR ---
DISCHARGE NOTES: PATIENT DC TO SNF, REPORT GIVEN TO LORAINE ARELLANO OF [facility]. PATIENT IS VERY CONFUSED AND NEEDS FREQUENT REORIENTATION. NO SOB OR CARDIAC DISTRESS ON O2 INHALATION @ 2LPM VIA NC AND TOLERATING WELL. IV ACCESS REMOVED. FRICKERTRON CHECKER GIVEN BACK TO ALI. ANGELES CATHETER REMOVED AND INFORMED THE SNF RN EILEEN AND PARAMEDICS. NO BELONGINGS TAKEN WITH THE PT. SKIN ISSUES NOTED AND PICTURE SECURE TO PT'S CHART. PT LEFT THE UNIT STABLE VIA GURNEY.
== END 2022-07-25 08:30 | DRG 73 ==
LOC: ER 13:56 → TELE 17:20
PROVIDERS: ADMIT Nurse Practitioner Acute Care; ATTEND Nurse Practitioner Acute Care
DX: G90.8 Other disorders of autonomic nervous system (principal); G93.41 Metabolic encephalopathy; E44.0 Moderate protein-calorie malnutrition; E87.0 Hyperosmolality and hypernatremia; E86.0 Dehydration; I48.91 Unspecified atrial fibrillation; Z20.822 Contact with and (suspected) exposure to COVID-19; F03.90 Unspecified dementia, unspecified severity, without behavioral disturbance, psychotic disturbance, mood disturbance, and anxiety; Z79.899 Other long term (current) drug therapy; Z91.81 History of falling; R79.89 Other specified abnormal findings of blood chemistry; D72.829 Elevated white blood cell count, unspecified; R13.10 Dysphagia, unspecified; E88.09 Other disorders of plasma-protein metabolism, not elsewhere classified; E83.41 Hypermagnesemia; Z68.24 Body mass index [BMI] 24.0-24.9, adult
CPT/HCPCS: 36415; 70450-TC; 71045-TC; 80048-TC; 80061-TC; 80076-TC; 81001; 82962-TC; 83735-TC; 84100-TC; 84443-TC; 84484-TC; 85025-TC; 87081-TC; 93307-TC; 94799-TC; 97112-TC; 97530-TC; G0378; J3475; J7030; J7040; J7070